=== PATIENT | male | born 1975 | race Caucasian/White ===

== ENCOUNTER 2018-04-06 11:11 | Emergency (ER) | payer OTHER ==
[2018-04-06 11:16] VITALS: BMI 29.6
[2018-04-06] MEDS ORDERED: Sodium Chloride 0.9% 1,000 ML IV STA (12:13)
[2018-04-06 12:31] LABS: BASO # 0.1 K/uL (0.0-0.2); BASO % 0.6 % (0.0-2.0); EOS % 0.3 % (0.0-4.0); HEMOGLOBIN 15.5 g/dL (12.0-18.0); LYMPH # 2.2 K/uL (1.0-4.3); LYMPH % 25.8 % (20.0-40.0); MEAN CELL VOLUME 88.8 fl (80.0-94.0); MEAN CORPUSCULAR HEMOGLOBIN 30.4 pg (27.0-31.0); MEAN CORPUSCULAR HGB CONC 34.2 g/dL (33.0-37.0); MEAN PLATELET VOLUME 10.4 fl (7.2-11.7); MONO # 0.5 K/uL (0.0-0.8); MONO % 5.9 % (0.0-10.0); NEUT # 5.8 K/uL (1.8-7.0); NEUT % 67.4 % (50.0-75.0); RBC 5.1 Mil/uL (4.40-5.90); RED CELL DISTRIBUTION WIDTH 12.7 % (11.5-14.5); WHITE BLOOD COUNT 8.7 K/uL (4.8-10.8)
--- NOTE | 2018-04-06 12:38 | ED PDOC ---
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 states for the past 4 days he's had worsening LEFT flank pain radiating to the LLQ. Pt. states he had same pain in the past for which an endoscopy was done which was normal. States he initially believed that pain was due to constipation. He took a laxative and had a watery BM 2 days ago but pain persisted. Denies trauma, chest pain, SOB, N/V, hematuria, dysuria, hematuria, previous abdominal surgeries, fever. Past Medical History Reviewed: Historical Data, Nursing Documentation, Vital Signs Vital Signs: Last Vital Signs Temp 98 F 04/06/18 11:16 Pulse 58 L 04/06/18 11:16 Resp 17 04/06/18 11:16 BP 120/70 04/06/18 11:48 Pulse Ox 99 04/06/18 11:16 - Medical History PMH: Denies: Deep Vein Thrombosis, Pulmonary Embolism - Surgical History Surgical History: No Surg Hx - Family History Family History: States: No Known Family Hx - Immunization History Hx Tetanus Toxoid Vaccination: No Hx Influenza Vaccination: No Hx Pneumococcal Vaccination: No - Home Medications Home Medications: Ambulatory Orders Medication Instructions Recorded Naproxen [Naprosyn] 500 mg PO BID PRN #14 tab 04/06/18 - Allergies Allergies/Adverse Reactions: Allergies Allergy/AdvReac Type Severity Reaction Status Date / Time No Known Allergies Allergy Verified 04/06/18 11:22 Review of Systems ROS Statement: Except As Marked, All Systems Reviewed And Found Negative Musculoskeletal: Positive for: Back Pain Physical Exam - Physical Exam Appears: Positive for: Non-toxic, Uncomfortable, In Acute Distress (moderate painful distress) Skin: Positive for: Normal Color, Warm. Negative for: Rash Eye Exam: Positive for: Normal appearance Cardiovascular/Chest: Positive for: Regular Rate, Rhythm Respiratory: Positive for: Normal Breath Sounds. Negative for: Respiratory Distress Gastrointestinal/Abdominal: Positive for: Normal Exam, Soft. Negative for: Tenderness (to deep palpation) Back: Positive for: Normal Inspection, L CVA Tenderness. Negative for: R CVA Tenderness Extremity: Positive for: Normal ROM Neurologic/Psych: Positive for: Alert, Oriented - Laboratory Results Result Diagrams: 04/06/18 12:20 05/24/18 12:20 - ECG ECG: Positive for: Interpreted By Me ECG Rhythm: Positive for: Sinus Bradycardia. Negative for: ST/T Changes Rate: 56 O2 Sat by Pulse Oximetry: 99 - Progress ED Course And Treament: Labs, CT abd/pelvis w/o contrast, toradol 30mg IV, IV NS bolus x 1 ordered. Re-evaluation Time: 14:00 (Pt. appears less uncomfortable. Informed of results and given strict instructions to return to ED if symptoms worsen. Also told to f /u with Dr. Holcomb (GI) or [facility] Verbalized understanding to PA. Kinyarwanda flatwork catcher #[id number] used. Case and diagnostic results d/w Dr. Campos who agrees with care and disposition.) Condition: Re-examined, Improving,but remains with symptoms Disposition - Clinical Impression Clinical Impression: Flank pain - Patient ED Disposition Is Patient to be Admitted: No - Disposition Referrals: [facility] [Outside] [facility] [Outside] Tom Holcomb MD [Medical Doctor] - Disposition: Routine/Home Disposition Time: 14:18 Condition: STABLE Additional Instructions: Follow up with [facility] for further evaluation Return to ED immediately if symptoms worsen Prescriptions: Naproxen [Naprosyn] 500 mg PO BID PRN #14 tab PRN Reason: Pain Instructions: Flank Pain (DC) Forms: [facility] (Puerto Rican), [facility] ED School/Work Excuse Print Language: YAKUT
[2018-04-06 12:40] LABS: ALB/GLOB RATIO 1.3 (1.0-2.1); ALBUMIN 4.3 g/dL (3.5-5.0); CALCIUM 9.3 mg/dL (8.4-10.2); GFR AFRICAN-AMERICAN > 60; GFR NON-AFRICAN AMERICAN > 60
[2018-04-06 12:44] LABS: ALT/SGPT 35 U/L (21-72); AST/SGOT 26 U/L (17-59); BLOOD UREA NITROGEN 10 mg/dl (9-20)
[2018-04-06 12:51] LABS: SQUAMOUS EPITHIAL < 1 /hpf (0-5); URINE BACTERIA RARE (<OCC); URINE BILIRUBIN NEGATIVE (NEGATIVE); URINE BLOOD NEGATIVE (NEGATIVE); URINE CLARITY CLOUDY (Clear); URINE COLOR YELLOW (YELLOW); URINE GLUCOSE (UA) NEG (Normal); URINE LEUKOCYTE ESTERASE NEG Leu/uL (Negative); URINE PROTEIN NEGATIVE (NEGATIVE); URINE UROBILINOGEN 0.2-1.0 mg/dL (0.2-1.0)
--- NOTE | 2018-04-06 13:18 | CT ---
PROCEDURE: CT Abdomen and Pelvis without intravenous contrast HISTORY: L flank pain COMPARISON: None. TECHNIQUE: Contiguous images were obtained from the domes of the diaphragms to the upper thighs without the administration of intravenous contrast. Oral contrast was not administered. Radiation dose: Total exam DLP = 710.3 mGy-cm. This CT exam was performed using one or more of the following dose reduction techniques: Automated exposure control, adjustment of the mA and/or kV according to patient size, and/or use of iterative reconstruction technique. FINDINGS: LOWER THORAX: Unremarkable. LIVER: Unremarkable. No gross lesion or ductal dilatation. GALLBLADDER AND BILE DUCTS: Unremarkable. PANCREAS: Unremarkable. No gross lesion or ductal dilatation. SPLEEN: Unremarkable. ADRENALS: Unremarkable. No mass. KIDNEYS AND URETERS: Unremarkable. No hydronephrosis. No solid mass. VASCULATURE: Scattered atherosclerotic calcifications. Mid left abdominal calcification in the region of the left ureter corresponds to left internal iliac artery calcification. No aortic aneurysm. BOWEL: Unremarkable. No obstruction. No gross mural thickening. APPENDIX: Unremarkable. Normal appendix. PERITONEUM: Small bilateral fat containing inguinal hernias. No free fluid. No free air. LYMPH NODES: Unremarkable. No enlarged lymph nodes. BLADDER: Unremarkable. REPRODUCTIVE: Unremarkable. BONES: No acute fracture. OTHER FINDINGS: None. IMPRESSION: No obstructive uropathy or evidence of recently passed genitourinary calculus. No acute abdominal pelvic pathology.
[2018-04-06 16:14] VITALS: BP 110/70; RESP 20; TEMP 98.6
[2018-04-06 17:59] VITALS: PULSE 56; O2SAT 99
--- NOTE | 2018-04-07 07:19 | CARD ---
APPROVED REPORT EKG Measurement Heart [id number] <Conclusion> Sinus bradycardia Otherwise normal ECG
== END 2018-04-06 15:20 | disposition home or self-care (01) ==
LOC: H.ER 11:11
DX: K59.00 Constipation, unspecified (principal)
CPT/HCPCS: 74176; 80053; 81003; 85025; 93005; 96361; 96374; 99285; J1885; J7030

== ENCOUNTER 2018-04-11 13:20 | Emergency (ER) | payer OTHER ==
[2018-04-11 13:20] VITALS: BMI 29.6
[2018-04-11] MEDS ORDERED: Sodium Chloride 0.9% 1,000 ML IV STA (16:17)
--- NOTE | 2018-04-11 16:27 | ED PDOC ---
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 Reports subjective fever yesterday. Denies nausea, vomiting, constipation, diarrhea, rectal bleeding (contrary to triage), dysuria, hematuria. Past Medical History Reviewed: Nursing Documentation, Vital Signs Vital Signs: Last Vital Signs Temp 97.0 F L 04/11/18 13:57 Pulse Resp BP Pulse Ox - Medical History PMH: No Chronic Diseases - Surgical History Surgical History: No Surg Hx - Family History Family History: States: Unknown Family Hx - Living Arrangements Living Arrangements: With Family - Social History Current smoker - smoking cessation education provided: No Alcohol: None - Immunization History Hx Tetanus Toxoid Vaccination: No Hx Influenza Vaccination: No Hx Pneumococcal Vaccination: No - Home Medications Home Medications: Ambulatory Orders Medication Instructions Recorded Naproxen [Naprosyn] 500 mg PO BID PRN #14 tab 04/06/18 - Allergies Allergies/Adverse Reactions: Allergies Allergy/AdvReac Type Severity Reaction Status Date / Time No Known Allergies Allergy Verified 04/06/18 11:22 Review of Systems Constitutional: Positive for: Fever (Subjective). Negative for: Chills, Weakness, Weight loss Cardiovascular: Negative for: Chest Pain, Palpitations Respiratory: Negative for: Cough, Shortness of Breath Gastrointestinal: Positive for: Abdominal Pain. Negative for: Nausea, Vomiting , Diarrhea, Constipation, Melena, Hematochezia, Hematemesis, Rectal Pain Genitourinary Male: Negative for: Dysuria, Hematuria Musculoskeletal: Positive for: Back Pain. Negative for: Neck Pain Skin: Negative for: Rash, Lesions Neurological: Negative for: Weakness, Numbness, Headache, Dizziness Physical Exam - Reviewed Nursing Documentation Reviewed: Yes Vital Signs Reviewed: Yes - Physical Exam Appears: Positive for: No Acute Distress (Moderate painful) Skin: Positive for: Normal Color, Warm, Dry Eye Exam: Positive for: Normal appearance, EOMI, PERRL Cardiovascular/Chest: Positive for: Regular Rate, Rhythm Respiratory: Positive for: Normal Breath Sounds Gastrointestinal/Abdominal: Positive for: Bowel Sounds, Soft, Tenderness (LUQ/ LLQ). Negative for: Distended, Guarding, Rebound Back: Positive for: Normal Inspection, L CVA Tenderness. Negative for: R CVA Tenderness Extremity: Positive for: Normal ROM Neurologic/Psych: Positive for: Alert, Oriented Medical Decision Making Medical Decision Makin yo male with L sided abd pain and L flank pain. - labs - EKG - CT abd/pelvis - IVF - Morphine Disposition - Disposition
[2018-04-11 17:36] LABS: SQUAMOUS EPITHIAL < 1 /hpf (0-5); URINE BILIRUBIN NEGATIVE (NEGATIVE); URINE BLOOD NEGATIVE (NEGATIVE); URINE CALCIUM OXALATE CRYSTALS OCC /hpf (<OCC); URINE CLARITY CLOUDY (Clear); URINE COLOR AMBER (YELLOW); URINE GLUCOSE (UA) NEG (Normal); URINE HYALINE CAST 0-2 /hpf (0-2); URINE LEUKOCYTE ESTERASE NEG Leu/uL (Negative); URINE PROTEIN 30 mg/dL (NEGATIVE)
[2018-04-11 17:39] LABS: BASO # 0.1 K/uL (0.0-0.2); BASO % 0.7 % (0.0-2.0); EOS % 0.4 % (0.0-4.0); HEMOGLOBIN 16.1 g/dL (12.0-18.0); LYMPH # 1.9 K/uL (1.0-4.3); MEAN CORPUSCULAR HEMOGLOBIN 30.2 pg (27.0-31.0); MEAN CORPUSCULAR HGB CONC 33.5 g/dL (33.0-37.0); MEAN PLATELET VOLUME 10.9 fl (7.2-11.7); MONO # 0.5 K/uL (0.0-0.8); MONO % 5.5 % (0.0-10.0); NEUT # 6.6 K/uL (1.8-7.0); NEUT % 72.4 % (50.0-75.0); RBC 5.34 Mil/uL (4.40-5.90); WHITE BLOOD COUNT 9.1 K/uL (4.8-10.8)
[2018-04-11 17:53] LABS: INR 1.1 (0.9-1.2); PARTIAL THROMBOPLASTIN TIME 29.5 Seconds (25.6-37.1); PROTHROMBIN TIME 12.4 Seconds (9.8-13.1)
[2018-04-11 18:07] LABS: ALB/GLOB RATIO 1.4 (1.0-2.1); ALBUMIN 4.4 g/dL (3.5-5.0); ALT/SGPT 32 U/L (21-72); AST/SGOT 18 U/L (17-59); BLOOD UREA NITROGEN 10 mg/dl (9-20); CALCIUM 9.1 mg/dL (8.4-10.2); GFR AFRICAN-AMERICAN > 60; GFR NON-AFRICAN AMERICAN > 60; LIPASE 53 U/L (23-300)
[2018-04-11] MEDS ORDERED: Iohexol 300 100 ML IJ ONE (18:31)
[2018-04-11] MEDS ORDERED: Sodium Chloride 0.9% 50 ML IV ONE (18:31)
--- NOTE | 2018-04-11 19:46 | CT ---
EXAM: CT Abdomen and Pelvis With Intravenous Contrast EXAM DATE/TIME: 04/11/2018 4:16 PM CLINICAL HISTORY: 42 years old, male; Pain; Abdominal pain; Localized; Left lower quadrant (llq); Patient HX: Sanaz reports constant left side abd pain x 5 days; Additional info: Luq/llq pain TECHNIQUE: Axial computed tomography images of the abdomen and pelvis with intravenous contrast. All CT scans at this facility use one or more dose reduction techniques, viz.: automated exposure control; ma/kV adjustment per patient size (including targeted exams where dose is matched to indication; i.e. head); or iterative reconstruction technique. Coronal and sagittal reformatted images were created and reviewed. CONTRAST: 95 mL of OMNIPAQUE 300 administered intravenously. COMPARISON: CT - ABD PELVIS W/O PO OR IV CONT 2018-04-06 12:47 FINDINGS: Lung bases: Heart size is normal. There is minimal atelectasis and scarring at the lung bases ABDOMEN: Liver: There is fatty infiltration of the liver. Gallbladder and bile ducts: unremarkable Pancreas: Pancreas is mildly atrophic. Spleen: unremarkable Adrenals: unremarkable Kidneys and ureters: Kidneys and ureters are unremarkable. There are no renal or ureteral stones Stomach and bowel: Stomach is incompletely distended. There is mild duodenal wall thickening and enhancement. Mid and distal small bowel are mildly distended with fluid and air. There is no obstruction. Ileocecal region is unremarkable. Appendix and terminal ileum are unremarkable.Colon is incompletely distended which limits evaluation. There is scattered diverticulosis PELVIS: Appendix: See stomach and bowel Bladder: unremarkable Reproductive: Seminal vesicles and prostate are unremarkable. ABDOMEN and PELVIS: Intraperitoneal space: There is no free air or free fluid. Bones/joints: There are no acute osseous abnormalities. There is minimal spondylosis. Soft tissues: unremarkable Vasculature: Vascular structures are unremarkable. Lymph nodes: There is no pathologic adenopathy. IMPRESSION: Fatty liver, no acute solid visceral abnormality; duodenitis with mild ileus; no CT findings of appendicitis or diverticulitis Additional nonemergent findings as described above.
--- NOTE | 2018-04-11 19:52 | ED PDOC ---
- Laboratory Results Result Diagrams: 04/11/18 17:34 04/11/18 17:34 - ECG Pulse Ox Interpretation: Normal Medical Decision Making Medical Decision Making: Time: 19:00 Patient signed out to me by Dr. Domingo pending CT and re-evaluation. CT Abd/Pelvis Results... FINDINGS: Lung bases: Heart size is normal. There is minimal atelectasis and scarring at the lung bases ABDOMEN: Liver: There is fatty infiltration of the liver. Gallbladder and bile ducts: unremarkable Pancreas: Pancreas is mildly atrophic. Spleen: unremarkable Adrenals: unremarkable Kidneys and ureters: Kidneys and ureters are unremarkable. There are no renal or ureteral stones Stomach and bowel: Stomach is incompletely distended. There is mild duodenal wall thickening and enhancement. Mid and distal small bowel are mildly distended with fluid and air. There is no obstruction. Ileocecal region is unremarkable. Appendix and terminal ileum are unremarkable.Colon is incompletely distended which limits evaluation. There is scattered diverticulosis PELVIS: Appendix: See stomach and bowel Bladder: unremarkable Reproductive: Seminal vesicles and prostate are unremarkable. ABDOMEN and PELVIS: Intraperitoneal space: There is no free air or free fluid. Bones/joints: There are no acute osseous abnormalities. There is minimal spondylosis. Soft tissues: unremarkable Vasculature: Vascular structures are unremarkable. Lymph nodes: There is no pathologic adenopathy. IMPRESSION: Fatty liver, no acute solid visceral abnormality; duodenitis with mild ileus; no CT findings of appendicitis or diverticulitis Additional nonemergent findings as described above. 22:45 Disposition... Surgical consult was obtained by Dr. Ca and patient was evaluated. Dr. Higgins cleared patient for discharge home and will be treated for gastroenteritis and gastritis. Patient referred to clinic and GI specialist. His condition improved to be sent home with Nexium and Bentyl. Scribe Attestation: Documented by Marvel Dietrich acting as a scribe for Jose Luis Mota MD. MD Farfan Attestation: All medical record entries made by the Naheed were at my direction and personally dictated by me. I have reviewed the chart and agree that the record accurately reflects my personal performance of the history, physical exam, medical decision making, and the department course for this patient. I have also personally directed, reviewed, and agree with the discharge instructions and disposition. Disposition - Clinical Impression Clinical Impression: Gastroenteritis, Gastritis - POA Present On Arrival: None - Disposition Disposition: Discharged to Home Care Disposition Time: 22:45 Condition: STABLE Prescriptions: Dicyclomine [Bentyl] 20 mg PO Q12 PRN #20 tab PRN Reason: abdominal pain/diarrhea Esomeprazole Magnesium [Nexium] 20 mg PO QAM #30 ecc Instructions: Viral Gastroenteritis Forms: [facility] (Cymro), [facility] ED School/Work Excuse
[2018-04-11 22:43] VITALS: BP 110/72; RESP 16; TEMP 98.9
--- NOTE | 2018-04-11 22:46 | CP.PCM.CON ---
History of Present Illness - History of Present Illness History of Present Illness: General Surgery Consult Re: mild ileus, mild duodenitis HPI: 42M presented toED c/o constant L sided abd pain/back pain X 8 days. Pain is worse with twisting movements and it is painful to lay flat on his back. He was evaluated in the ED on 04/06 for this same, sent home with Naprosyn, without relief. Initially he believed that pain was due to constipation so he took a laxative and had a watery BM, but pain persisted. + constipation, with occasional watery stools, subjective fever x1. Denies nausea, emesis, hematemesis, chest pain, SOBmelena, hematochezia, dysuria, hematuria. PMH: Denies PSH: Denies. Had colonoscopy in past which was normal SH: No tobacco, EtOH, or drug use. Works in a [employer], occasional heavy lifting FH: non-contributory All: NKDA Meds: Denies Review of Systems - Review of Systems All systems: reviewed and no additional remarkable complaints except (as per HPI ) Past Patient History - Past Social History Smoking Status: Never Smoked - PULMONARY Hx Pulmonary Embolism: No - PSYCHIATRIC Hx Substance Use: No - ANESTHESIA Hx Anesthesia: Yes Hx Anesthesia Reactions: No Hx Malignant Hyperthermia: No Meds Home Medications: Home Medication List Medication Instructions Recorded Confirmed Type Dicyclomine [Bentyl] 20 mg PO Q12 PRN #20 tab 04/11/18 Rx Esomeprazole Magnesium [Nexium] 20 mg PO QAM #30 ecc 04/11/18 Rx Allergies/Adverse Reactions: Allergies Allergy/AdvReac Type Severity Reaction Status Date / Time No Known Allergies Allergy Verified 04/06/18 11:22 Physical Exam - Constitutional Appears: Non-toxic, No Acute Distress - Head Exam Head Exam: ATRAUMATIC, NORMOCEPHALIC - Eye Exam Eye Exam: EOMI. absent: Scleral icterus - ENT Exam ENT Exam: Mucous Membranes Moist Additional comments: trachea midline - Respiratory Exam Respiratory Exam: NORMAL BREATHING PATTERN. absent: Respiratory Distress - GI/Abdominal Exam GI & Abdominal Exam: Guarding (L quadrants, L flank), Soft, Tenderness (Left quadrants, L flank stopping exactly at midline). absent: Distended, Firm, Hernia, Rebound, Rigid - Rectal Exam Rectal Exam: Deferred - Extremities Exam Extremities exam: Positive for: normal capillary refill. Negative for: calf tenderness - Back Exam Back exam: CVA tenderness (L), paraspinal tenderness (on L from mid thoracic spine to cephalad edge of sacrum). absent: CVA tenderness (R) Additional comments: L flank pain - Neurological Exam Neurological exam: Alert, Oriented x3 - Skin Skin Exam: Dry, Warm Results - Vital Signs Recent Vital Signs: Last Vital Signs Temp 97.0 F L 04/11/18 13:57 Pulse Resp BP Pulse Ox - Labs Result Diagrams: 04/11/18 17:34 04/11/18 17:34 Labs: Laboratory Results - last 24 hr 04/11/18 04/11/18 04/11/18 17:22 17:34 17:34 WBC 9.1 RBC 5.34 Hgb 16.1 Hct 48.1 MCV 90.0 MCH 30.2 MCHC 33.5 RDW 13.0 Plt Count 166 MPV 10.9 Neut % (Auto) 72.4 Lymph % (Auto) 21.0 [place] % (Auto) 5.5 Eos % (Auto) 0.4 Baso % (Auto) 0.7 Neut # (Auto) 6.6 Lymph # (Auto) 1.9 [place] # (Auto) 0.5 Eos # (Auto) 0.0 Baso # (Auto) 0.1 PT INR APTT Sodium 140 Potassium 4.4 Chloride 101 Carbon Dioxide 24 Anion Gap 19 BUN 10 Creatinine 0.8 Est GFR ( Amer) > 60 Est GFR (Non-Af Amer) > 60 Random Glucose 101 Calcium 9.1 Total Bilirubin 0.9 AST 18 ALT 32 Alkaline Phosphatase 83 Total Protein 7.5 Albumin 4.4 Globulin 3.2 Albumin/Globulin Ratio 1.4 Lipase 53 Urine Color [place] Urine Clarity Cloudy Urine pH 5.0 Ur Specific Gleason 1.027 Urine Protein 30 Urine Glucose (UA) Neg Urine Ketones 80 Urine Blood Negative Urine Nitrate Negative Urine Bilirubin Negative Urine Urobilinogen 2.0 Ur Leukocyte Esterase Neg Urine RBC (Auto) 3 Urine Microscopic WBC 3 Ur Squamous Epith Cells < 1 Calcium Oxalate Crystal Occ H Hyaline Casts 0-2 04/11/18 17:34 WBC RBC Hgb Hct MCV MCH MCHC RDW Plt Count MPV Neut % (Auto) Lymph % (Auto) [place] % (Auto) Eos % (Auto) Baso % (Auto) Neut # (Auto) Lymph # (Auto) [place] # (Auto) Eos # (Auto) Baso # (Auto) PT 12.4 INR 1.1 APTT 29.5 Sodium Potassium Chloride Carbon Dioxide Anion Gap BUN Creatinine Est GFR ( Amer) Est GFR (Non-Af Amer) Random Glucose Calcium Total Bilirubin AST ALT Alkaline Phosphatase Total Protein Albumin Globulin Albumin/Globulin Ratio Lipase Urine Color Urine Clarity Urine pH Ur Specific Gleason Urine Protein Urine Glucose (UA) Urine Ketones Urine Blood Urine Nitrate Urine Bilirubin Urine Urobilinogen Ur Leukocyte Esterase Urine RBC (Auto) Urine Microscopic WBC Ur Squamous Epith Cells Calcium Oxalate Crystal Hyaline Casts - Imaging and Cardiology CT scan - abdomen Status: Image reviewed by me, Report reviewed by me Assessment & Plan - Assessment and Plan (Free Text) Assessment: 42M with mild duodenitis and L sided pain from spine to anterior midline Plan: No surgical intervention required. Follow up with GI. Follow up with PMD for possible herpes zoster and/or musculoskeletal pain management D/W Dr. Ronaldo Ca PGY4
[2018-04-11 22:53] VITALS: PULSE 58
[2018-04-11 23:08] VITALS: O2SAT 99
--- NOTE | 2018-04-12 17:20 | CARD ---
APPROVED REPORT EKG Measurement Heart [id number] [place] [id number] [id number] <Conclusion> Sinus bradycardia Otherwise normal ECG
== END 2018-04-11 22:58 | disposition home or self-care (01) ==
LOC: H.ER 13:20
DX: K29.70 Gastritis, unspecified, without bleeding (principal); K52.9 Noninfective gastroenteritis and colitis, unspecified
CPT/HCPCS: 74177; 80053; 81003; 83690; 85025; 85610; 85730; 93005; 96360; 99285; J2270; J7030; Q9967